=== PATIENT | male | born 1990 | race Caucasian/White ===

== ENCOUNTER 2019-03-24 12:54 | Emergency (ER) | payer OTHER ==
[~2019-03-24] VITALS: Ht 162.6 cm; Wt 54.4 kg
[2019-03-24 13:59] VITALS: Ht 162.6 cm; Wt 54.4 kg
[2019-03-24 15:00] LABS: BASOPHIL % 0.1 % (0-2); PLATELET COUNT 237 x10^3mcL (130-400); RED CELL DISTRIBUTION WIDTH 12.2 % (11.5-14.5)
[2019-03-24 15:30] LABS: CALCIUM 9.8 mg/dL (8.5-10.1); CARBON DIOXIDE 26.9 mmol/L (21-32); CHLORIDE SERUM 97 mmol/L (98-107); CREATININE SERUM 0.9 mg/dL (0.7-1.3); GFR1 > 60 mL/min; GLUCOSE SERUM 89 mg/dL (74-106); POTASSIUM SERUM 4.6 mmol/L (3.5-5.1); SODIUM SERUM 139 mmol/L (136-145)
[2019-03-24 15:37] LABS: ALBUMIN 4.8 g/dL (3.4-5.0); ALKALINE PHOSPHATASE 90 U/L (46-116); ALT/SGPT 17 U/L (16-63); AST/SGOT 25 U/L (15-37); BILIRUBIN TOTAL 0.56 mg/dL (0.20-1.00); LIPASE 66 IU/L (73-393); TOTAL PROTEIN, SERUM 8.5 g/dL (6.4-8.2)
[2019-03-24 17:55] VITALS: BP 122/76
== END 2019-03-24 18:02 | disposition home or self-care (01) ==
LOC: ED 12:54
PROVIDERS: Emergency Medicine
DX: F12.99 Cannabis use, unspecified with unspecified cannabis-induced disorder (principal)
CPT/HCPCS: J1200; J1630; J1885